=== PATIENT | female | born 2000 | race Caucasian/White ===

== ENCOUNTER → 2019-06-21 | Outpatient (CLI) | payer MEDICAID ==
[~2019-06-21] MED LIST: AMBIEN 5 MG TABL5 M1 PO
--- NOTE | 2019-06-21 16:55 | 2DMMODE ---
[place] [address] 2 D/M-MODE ECHOCARDIOGRAM Name: LALO MAGAÑA Room: [facility]#: [id number] Admission: 06/21/19 Attend Phys: Ced Abdi, Discharge: Date of : 89 Date of Service: 06/21/19 1655 Report #: [id number] THIS REPORT FOR: //name// APPROVED REPORT Study performed: 06/21/2019 09:23:13 EXAM: Comprehensive 2D, Doppler, and color-flow Echocardiogram Patient Location: Out-Patient BSA: 2.13 HR: 73 bpm BP: 122/72 mmHg Other Information Study Quality: Good Indications Aortic Valve Disease 2D Dimensions IVSd: 11.35 (7-11mm) LVOT Diam: 21.25 (18-24mm) LVDd: 47.10 mm PWd: 10.15 (7-11mm) Ascending Ao: 32.33 (22-36mm) LVDs: 19.53 (25-40mm) Aortic Root: 26.05 mm Volumes Left Atrial Volume (Systole) LA ESV Index: 15.60 mL/m2 Aortic Valve AoV Peak Armin.: 3.76 m/s AO Peak Gr.: 56.68 mmHg LVOT Max P.38 mmHg AO Mean Gr.: 34.21 mmHg LVOT Mean P.30 mmHg LVOT Max V: 1.05 m/s AO V2 VTI: 87.25 cm LVOT Mean V: 0.70 m/s PETER (VTI): 1.06 cm2 LVOT V1 VTI: 26.19 cm AI Cidra: 2.58 m/s2 AI PHT: 440.51 ms Mitral Valve E/A Ratio: 1.63 MV Decel. Time: 153.32 ms MV E Max Armin.: 1.06 m/[place] [address] 2 D/M-MODE ECHOCARDIOGRAM Name: LALO MAGAÑA Room: [facility]#: [id number] Admission: 06/21/19 Attend Phys: Ced Abdi, Discharge: Date of : 89 Date of Service: 06/21/19 1655 Report #: [id number] MV PHT: 44.46 ms MVA (PHT): 4.95 cm2 TDI E/Lateral E': 6.24 E/Medial E': 8.15 Medial E' Armin.: 0.13 m/s Lateral E' Armin.: 0.17 m/s Pulmonary Valve PV Peak Armin.: 0.94 m/s PV Peak Gr.: 3.50 mmHg Tricuspid Valve RAP Estimate: 5.00 mmHg TR Peak Gr.: 24.44 mmHg RVSP: 29.44 mmHg PA Pressure: 29.44 mmHg Left Ventricle The left ventricle is normal size. There is normal LV segmental wall motion. There is normal left ventricular wall thickness. Left ventricular systolic function is normal. LVEF is >70%. The left ventricular diastolic function is normal. Right Ventricle The right ventricle is normal size. The right ventricular systolic function is normal. Atria The left atrium size is normal. The right atrium size is normal. Aortic Valve Aortic valve is bicuspid. Moderate aortic regurgitation. Moderate aortic stenosis. Mitral Valve The mitral valve is normal in structure. There is no mitral valve regurgitation noted. No evidence of mitral valve stenosis. Tricuspid Valve The tricuspid valve is normal in structure. Mild tricuspid regurgitation. Pulmonic Valve The pulmonary valve is normal in structure. Mild [place] [address] 2 D/M-MODE ECHOCARDIOGRAM Name: LALO MAGAÑA Room: [facility]#: [id number] Admission: 06/21/19 Attend Phys: Ced Abdi, Discharge: Date of : 89 Date of Service: 06/21/19 1655 Report #: [id number] Great Vessels The aortic root is normal in size. IVC is normal in size and collapses >50% with inspiration. Pericardium There is no pericardial effusion. <Conclusion> The left ventricle is normal size. There is normal left ventricular wall thickness. Left ventricular systolic function is normal. LVEF is >70%. The left ventricular diastolic function is normal. Aortic valve is bicuspid. Moderate aortic regurgitation. Moderate aortic stenosis. Mild tricuspid regurgitation. IVC is normal in size and collapses >50% with inspiration. The aortic root is normal in size. <ELECTRONICALLY SIGNED> By: Ced Abdi MD, FACC 06/21/19 1655 165 165 Ced Abdi MD, FACC /INF
== END ==
LOC: M.CRD 08:38
DX: I08.8 Other rheumatic multiple valve diseases (principal)

== ENCOUNTER 2020-08-20 23:03 | Emergency (ER) | payer MEDICAID ==
[~2020-08-20] VITALS: Ht 160 cm; Wt 120.2 kg
[2020-08-20] MEDS ORDERED: ABILIFY 5 MG TAB5 M1 PO (23:14)
[2020-08-20] MEDS ORDERED: PHENTERMINE (23:14)
[2020-08-20 23:38] LABS: URINE BILIRUBIN NEGATIVE (Negative); URINE BLOOD TRACE (Negative); URINE CLARITY SL CLOUDY; URINE COLOR YELLOW; URINE GLUCOSE-RANDOM NEGATIVE (Negative); URINE KETONES NEGATIVE (Negative); URINE LEUKOCYTES-REFLEX NEGATIVE (Negative); URINE NITRITE-REFLEX NEGATIVE (Negative); URINE PROTEIN NEGATIVE (Negative); URINE SPECIFIC GRAVITY 1.025 (1.005-1.030)
[2020-08-20 23:49] LABS: ABSOLUTE BASOPHILS 0.1 thou/uL (0.0-0.2); ABSOLUTE EOSINOPHILS 0.1 thou/uL (0.0-0.7); ABSOLUTE LYMPHOCYTES 3.5 thou/uL (0.8-5.3); ABSOLUTE MONOCYTES 0.7 thou/uL (0.0-1.2); ABSOLUTE NEUTROPHILS 5.8 thou/uL (1.6-8.1); BASOPHILS 0.6 %; EOSINOPHILS 0.6 %; HEMATOCRIT 37.2 % (37.0-47.0); HEMOGLOBIN 12.3 gm/dL (12.0-15.0); LYMPHOCYTES 34.7 %; MCH 28.9 pg (26.0-34.0); MCHC 33.1 g/dL (28.0-37.0); MCV 87.2 fL (80.0-100.0); MONOCYTES 6.4 %; MPV 8.3 fl. (7.2-11.1); NUCLEATED RBCS 0 /100WBC; PLATELET COUNT* 297 thou/uL (150-400); POLYS 57.7 %; RBC 4.26 mil/uL (4.20-5.00); RDW-CV 13.3 % (10.5-14.5); WBC 10.1 thou/uL (4.0-11.0)
[2020-08-20 23:53] LABS: CALCIUM 8.4 mg/dL (8.5-10.1)
[2020-08-20 23:57] LABS: ALBUMIN 3.5 g/dL (3.4-5.0); TOTAL BILIRUBIN 0.1 mg/dL (<0.1-1.0); TOTAL PROTEIN 7.9 g/dL (6.4-8.2)
[2020-08-21 00:22] VITALS: BP 125/80
== END 2020-08-21 00:22 | disposition home or self-care (01) ==
LOC: M.ERS 23:03
PROVIDERS: Personal Emergency Response Attendant
DX: R10.13 Epigastric pain (principal); R10.11 Right upper quadrant pain; Z79.899 Other long term (current) drug therapy

== ENCOUNTER → 2020-09-17 | Outpatient (CLI) | payer MEDICAID ==
[~2020-09-17] MED LIST changes: +ABILIFY 5 MG TAB5 M1 PO; +PHENTERMINE
--- NOTE | 2020-09-17 13:49 | 2DMMODE ---
[place] [address] 2 D/M-MODE ECHOCARDIOGRAM Name: ARCHANALALO A Room: [facility]#: [id number] Admission: 09/17/20 Attend Phys: Ced Abdi, Discharge: Date of : 89 Date of Service: 09/17/20 1348 Report #: [id number] THIS REPORT FOR: cc: Gadiel Arzate Ahmad W. DO Liston, Michael J. MD [facility] ~ APPROVED REPORT Study performed: 09/17/2020 10:57:58 EXAM: Comprehensive 2D, Doppler, and color-flow Echocardiogram Patient Location: Out-Patient BSA: 2.15 HR: 55 bpm Other Information Study Quality: Fair Indications Aortic Valve Disease 2D Dimensions IVSd: 8.42 (7-11mm) LVOT Diam: 20.36 (18-24mm) LVDd: 50.61 mm PWd: 9.79 (7-11mm) Ascending Ao: 32.58 (22-36mm) LVDs: 26.89 (25-40mm) Aortic Root: 27.91 mm Volumes Left Atrial Volume (Systole) LA ESV Index: 11.80 mL/m2 Aortic Valve AoV Peak Armin.: 3.89 m/s AO Peak Gr.: 60.68 mmHg LVOT Max P.54 mmHg AO Mean Gr.: 36.61 mmHg LVOT Mean P.85 mmHg LVOT Max V: 0.94 m/s AO V2 VTI: 89.56 cm LVOT Mean V: 0.63 m/s PETER (VTI): 0.93 cm2 LVOT V1 VTI: 25.51 cm AI Andrew: 2.16 m/s2 AI PHT: 550.34 [place] [address] 2 D/M-MODE ECHOCARDIOGRAM Name: LALO MAGAÑA Room: [facility]#: [id number] Admission: 09/17/20 Attend Phys: Ced Abdi, Discharge: Date of : 89 Date of Service: 09/17/20 1348 Report #: [id number] Mitral Valve E/A Ratio: 2.04 MV Decel. Time: 186.47 ms MV E Max Armin.: 0.90 m/s MV PHT: 54.08 ms MVA (PHT): 4.07 cm2 TDI E/Lateral E': 4.74 E/Medial E': 6.00 Medial E' Armin.: 0.15 m/s Lateral E' Armin.: 0.19 m/s Pulmonary Valve PV Peak Armin.: 0.84 m/s PV Peak Gr.: 2.82 mmHg Left Ventricle The left ventricle is normal size. There is normal LV segmental wall motion. There is normal left ventricular wall thickness. Left ventricular systolic function is normal. LVEF is 55-60%. The left ventricular diastolic function is normal. Right Ventricle The right ventricle is normal size. The right ventricular systolic function is normal. Atria The left atrium size is normal. The right atrium size is normal. Aortic Valve Aortic valve is bicuspid. Mild aortic regurgitation. Moderate to severe aortic stenosis. Mitral Valve The mitral valve is normal in structure. There is no mitral valve regurgitation noted. No evidence of mitral valve stenosis. Tricuspid Valve The tricuspid valve is normal in structure. There is no tricuspid valve regurgitation noted. Pulmonic Valve The pulmonary valve is normal in structure. There is no pulmonic valvular regurgitation[place] [address] 2 D/M-MODE ECHOCARDIOGRAM Name: LALO MAGAÑA Room: [facility]#: [id number] Admission: 09/17/20 Attend Phys: Ced Abdi, Discharge: Date of : 89 Date of Service: 09/17/20 1348 Report #: [id number] The aortic root is normal in size. IVC is normal in size and collapses >50% with inspiration. Pericardium There is no pericardial effusion. <Conclusion> The left ventricle is normal size. There is normal left ventricular wall thickness. Left ventricular systolic function is normal. LVEF is 55-60%. The left ventricular diastolic function is normal. Aortic valve is bicuspid. Mild aortic regurgitation. Moderate to severe aortic stenosis. IVC is normal in size and collapses >50% with inspiration. <ELECTRONICALLY SIGNED> By: Ced Abdi MD, FACC 09/17/20 1348 1348 1348 Ced Abdi MD, FACC /INF
== END ==
LOC: M.CRD 07-31 13:00
PROVIDERS: ATTEND Internal Medicine Cardiovascular Disease
DX: I35.1 Nonrheumatic aortic (valve) insufficiency (principal)

== ENCOUNTER 2020-10-19 19:10 | Emergency (ER) | payer MEDICAID ==
[~2020-10-19] VITALS: Ht 157.5 cm; Wt 98.9 kg
[2020-10-19 20:15] LABS: ABSOLUTE LYMPHOCYTES 2.9 thou/uL (0.8-5.3); ABSOLUTE MONOCYTES 0.6 thou/uL (0.0-1.2); EOSINOPHILS 0.4 %; LYMPHOCYTES 22.8 %; MONOCYTES 4.8 %; MPV 8.6 fl. (7.2-11.1); NUCLEATED RBCS 0 /100WBC
[2020-10-19 20:17] LABS: ABSOLUTE BASOPHILS 0.1 thou/uL (0.0-0.2); BASOPHILS 0.9 %; HEMATOCRIT 39.2 % (37.0-47.0); HEMOGLOBIN 12.9 gm/dL (12.0-15.0); MCH 28.5 pg (26.0-34.0); MCHC 32.8 g/dL (28.0-37.0); MCV 86.8 fL (80.0-100.0); PLATELET COUNT* 308 thou/uL (150-400); POLYS 71.1 %; RBC 4.51 mil/uL (4.20-5.00); RDW-CV 13.1 % (10.5-14.5); WBC 12.7 thou/uL (4.0-11.0)
[2020-10-19 20:19] LABS: URINE BILIRUBIN NEGATIVE (Negative); URINE BLOOD 2+ (Negative); URINE CLARITY CLEAR; URINE COLOR YELLOW; URINE GLUCOSE-RANDOM NEGATIVE (Negative); URINE KETONES NEGATIVE (Negative); URINE LEUKOCYTES-REFLEX NEGATIVE (Negative); URINE NITRITE-REFLEX NEGATIVE (Negative); URINE PROTEIN NEGATIVE (Negative); URINE SPECIFIC GRAVITY 1.025 (1.005-1.030)
[2020-10-19 20:25] LABS: PROTIME 10.7 Seconds (9.20-11.50)
[2020-10-19 20:29] LABS: ALBUMIN 3.6 g/dL (3.4-5.0); CALCIUM 8.9 mg/dL (8.5-10.1); POTASSIUM 4.3 mmol/L (3.5-5.1); TOTAL BILIRUBIN 0.1 mg/dL (<0.1-1.0); TOTAL PROTEIN 7.8 g/dL (6.4-8.2)
[2020-10-19 20:36] LABS: CASTS None Seen /LPF (None Seen); CRYSTALS None Seen /LPF (None Seen); MUCUS None Seen strn/LPF (None Seen); SQUAMOUS >10 Many /LPF (0-3); URINE RBC 3-10 Few /HPF (0-2)
[2020-10-19 20:37] LABS: BACTERIA-REFLEX 1-9 Few /HPF (None Seen); URINE WBC-REFLEX 0-5 Rare /HPF (0-5)
[2020-10-19 22:00] VITALS: BP 128/80
--- NOTE | 2020-10-20 12:41 | EKG ---
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[id number] Requested By: Bhumi Elliott Order Number: [id number] MD: Donavan Yoon Measurements Intervals [place] Rate: 79 P: 20 MI: 130 QRS: 13 QRSD: 86 T: -11 QT: 380 QTc: 436 Interpretive Statements Sinus rhythm LVH by voltage Nonspecific T abnormalities, inferior leads Baseline wander in lead(s) V6 No previous ECG available for comparison Electronically Signed On 10-20-2020 12:41:35 WOOD 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
== END 2020-10-19 22:00 | disposition home or self-care (01) ==
LOC: M.ERS 19:10
PROVIDERS: Personal Emergency Response Attendant
DX: K52.9 Noninfective gastroenteritis and colitis, unspecified (principal); F17.210 Nicotine dependence, cigarettes, uncomplicated

== ENCOUNTER 2020-10-21 22:59 | Emergency (ER) | payer MEDICAID ==
[~2020-10-21] VITALS: Ht 160 cm; Wt 118.4 kg
[2020-10-21] MEDS ORDERED: VENTOLIN HFA 1818 GM INH (23:06)
[2020-10-21 23:18] VITALS: BP 124/78
== END 2020-10-21 23:18 | disposition home or self-care (01) ==
LOC: M.ERS 22:59
DX: R06.00 Dyspnea, unspecified (principal); F17.210 Nicotine dependence, cigarettes, uncomplicated

== ENCOUNTER 2021-01-08 23:06 | Emergency (ER) | payer MEDICAID ==
[~2021-01-08] VITALS: Ht 157.5 cm; Wt 121.6 kg
[~2021-01-08 23:06] MED LIST changes: +VENTOLIN HFA 1818 GM INH
[2021-01-08 23:44] LABS: URINE BILIRUBIN NEGATIVE (Negative); URINE BLOOD 1+ (Negative); URINE COLOR YELLOW; URINE GLUCOSE-RANDOM NEGATIVE (Negative); URINE KETONES NEGATIVE (Negative); URINE LEUKOCYTES-REFLEX TRACE (Negative); URINE NITRITE-REFLEX NEGATIVE (Negative); URINE PROTEIN NEGATIVE (Negative); URINE SPECIFIC GRAVITY >= 1.030 (1.005-1.030)
[2021-01-08 23:44] LABS: ABSOLUTE BASOPHILS 0.1 thou/uL (0.0-0.2); ABSOLUTE LYMPHOCYTES 3.2 thou/uL (0.8-5.3); ABSOLUTE MONOCYTES 0.7 thou/uL (0.0-1.2); ABSOLUTE NEUTROPHILS 8.1 thou/uL (1.6-8.1); BASOPHILS 1.1 %; EOSINOPHILS 0.4 %; HEMATOCRIT 36.4 % (37.0-47.0); LYMPHOCYTES 26.7 %; MCHC 32.9 g/dL (28.0-37.0); MCV 85.1 fL (80.0-100.0); MONOCYTES 5.5 %; NUCLEATED RBCS 0 /100WBC; PLATELET COUNT* 310 thou/uL (150-400); POLYS 66.3 %; RBC 4.28 mil/uL (4.20-5.00); RDW-CV 12.6 % (10.5-14.5); WBC 12.1 thou/uL (4.0-11.0)
[2021-01-08 23:45] LABS: URINE CLARITY SL HAZY
[2021-01-08 23:47] LABS: CALCIUM 9.1 mg/dL (8.5-10.1); POTASSIUM 3.7 mmol/L (3.5-5.1)
[2021-01-08 23:53] LABS: ALBUMIN 3.4 g/dL (3.4-5.0); TOTAL BILIRUBIN 0.2 mg/dL (<0.1-1.0); TOTAL PROTEIN 7.8 g/dL (6.4-8.2)
[2021-01-08 23:54] LABS: AMP/METHAMP Negative (Negative); BARBITURATES Negative (Negative); BENZODIAZEPINES Negative (Negative); COCAINE Negative (Negative); METHADONE Negative (Negative); OPIATES Negative (Negative); PCP Negative (Negative); THC Negative (Negative)
[2021-01-08 23:58] LABS: BACTERIA-REFLEX >30 Many /HPF (None Seen); CASTS None Seen /LPF (None Seen); CRYSTALS None Seen /LPF (None Seen); MUCUS 0-3 Light strn/LPF (None Seen); SQUAMOUS 4-10 Moderate /LPF (0-3); URINE WBC-REFLEX 6-15 Few /HPF (0-5); WBC CLUMPS Few (None Seen)
[2021-01-09] MEDS ORDERED: BACTRIM DS TAB1 EACH PO (01:18)
[2021-01-09] MEDS ORDERED: ZOFRAN ODT4 MG PO (01:18)
[2021-01-09 01:30] VITALS: BP 102/73
== END 2021-01-09 02:07 | disposition home or self-care (01) ==
LOC: M.ERS 23:06
PROVIDERS: Emergency Medicine
DX: N39.0 Urinary tract infection, site not specified (principal); R10.11 Right upper quadrant pain; R10.13 Epigastric pain; F17.210 Nicotine dependence, cigarettes, uncomplicated; Z79.899 Other long term (current) drug therapy

== ENCOUNTER 2021-01-14 19:26 | Emergency (ER) | payer MEDICAID ==
[~2021-01-14] VITALS: Ht 157.5 cm; Wt 122.0 kg
[~2021-01-14 19:26] MED LIST changes: +BACTRIM DS TAB1 EACH PO; +ZOFRAN ODT4 MG PO
[2021-01-14 20:02] VITALS: BP 108/75
[2021-01-14] MEDS ORDERED: OXTELLAR XR150 MG PO (20:05)
== END 2021-01-14 21:45 | disposition left against medical advice (07) ==
LOC: M.ERS 19:26
DX: Z53.21 Procedure and treatment not carried out due to patient leaving prior to being seen by health care provider (principal)

== ENCOUNTER 2021-03-06 20:38 | Emergency (ER) | payer MEDICAID ==
[~2021-03-06] VITALS: Ht 160 cm; Wt 117.9 kg
[~2021-03-06 20:38] MED LIST changes: +OXTELLAR XR150 MG PO
[2021-03-06 21:00] LABS: URINE BILIRUBIN NEGATIVE (Negative); URINE BLOOD NEGATIVE (Negative); URINE COLOR YELLOW; URINE GLUCOSE-RANDOM NEGATIVE (Negative); URINE KETONES NEGATIVE (Negative); URINE NITRITE-REFLEX NEGATIVE (Negative); URINE PROTEIN NEGATIVE (Negative); URINE SPECIFIC GRAVITY 1.015 (1.005-1.030)
[2021-03-06 21:02] LABS: URINE CLARITY CLOUDY; URINE LEUKOCYTES-REFLEX 2+ (Negative)
[2021-03-06 21:06] LABS: SQUAMOUS >10 Many /LPF (0-3); URINE WBC-REFLEX 0-5 Rare /HPF (0-5)
[2021-03-06 21:07] LABS: BACTERIA-REFLEX >30 Many /HPF (None Seen); CASTS None Seen /LPF (None Seen); CRYSTALS None Seen /LPF (None Seen); URINE RBC None Seen /HPF (0-2)
[2021-03-06] MEDS ORDERED: MACROBID 100 M100 M1 PO (21:46)
[2021-03-06] MEDS ORDERED: ZOFRAN ODT4 MG PO (21:46)
[2021-03-06 21:56] VITALS: BP 100/70
== END 2021-03-06 21:59 | disposition home or self-care (01) ==
LOC: M.ERS 20:38
PROVIDERS: Emergency Medicine
DX: N39.0 Urinary tract infection, site not specified (principal); R11.0 Nausea; F17.210 Nicotine dependence, cigarettes, uncomplicated

== ENCOUNTER 2021-03-09 11:11 | Emergency (ER) | payer MEDICAID ==
[~2021-03-09] VITALS: Ht 157.5 cm; Wt 118.5 kg
[~2021-03-09 11:11] MED LIST changes: +MACROBID 100 M100 M1 PO
[2021-03-09 11:46] LABS: ABSOLUTE BASOPHILS 0.1 thou/uL (0.0-0.2); ABSOLUTE LYMPHOCYTES 2.3 thou/uL (0.8-5.3); ABSOLUTE MONOCYTES 0.5 thou/uL (0.0-1.2); ABSOLUTE NEUTROPHILS 7.7 thou/uL (1.6-8.1); BASOPHILS 0.6 %; EOSINOPHILS 0.5 %; HEMOGLOBIN 12.3 gm/dL (12.0-15.0); LYMPHOCYTES 21.6 %; MCHC 34.3 g/dL (28.0-37.0); MCV 84.7 fL (80.0-100.0); MPV 9.4 fl. (7.2-11.1); NUCLEATED RBCS 0 /100WBC; PLATELET COUNT* 254 thou/uL (150-400); POLYS 72.3 %; RBC 4.25 mil/uL (4.20-5.00); WBC 10.6 thou/uL (4.0-11.0)
[2021-03-09 11:56] LABS: CALCIUM 8.8 mg/dL (8.5-10.1); CREATININE 0.9 mg/dL (0.6-1.3); POTASSIUM 4.3 mmol/L (3.5-5.1)
--- NOTE | 2021-03-09 12:15 | EKG ---
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: OSMAN JOHNSON : 2000 Requested By: Eriberto Tinajero Order Number: [id number] MD: Donavan Yoon Measurements Intervals [place] Rate: 62 P: 13 RI: 132 QRS: 11 QRSD: 101 T: -16 QT: 437 QTc: 444 Interpretive Statements Sinus rhythm Probable left ventricular hypertrophy Nonspecific T abnormalities, inferior leads Compared to ECG 10/19/2020 19:07:30 No significant changes Electronically Signed On 03-09-2021 12:15:20 CDT by Donavan Yoon [email or web address] <ELECTRONICALLY SIGNED> By: Avril Yoon MD, [facility] 03/09/21 1215 1126 1126 Avril Yoon MD, [facility] /EPI
[2021-03-09] MEDS ORDERED: FLEXERIL PO (13:13)
[2021-03-09 13:20] VITALS: BP 114/61
== END 2021-03-09 13:20 | disposition home or self-care (01) ==
LOC: M.ERS 11:11
PROVIDERS: Emergency Medicine Emergency Medical Services
DX: R07.81 Pleurodynia (principal); F17.210 Nicotine dependence, cigarettes, uncomplicated

== ENCOUNTER 2021-04-06 19:39 | Emergency (ER) | payer MEDICAID ==
[~2021-04-06] VITALS: Ht 160 cm; Wt 113.4 kg
[~2021-04-06 19:39] MED LIST changes: +FLEXERIL PO
[2021-04-06] MEDS ORDERED: RELAFEN750 M1 PO (22:28)
[2021-04-06] MEDS ORDERED: ZANAFLEX4 MG PO (22:29)
[2021-04-06 23:33] VITALS: BP 125/68
== END 2021-04-06 23:33 | disposition home or self-care (01) ==
LOC: M.ERS 19:39
DX: G89.29 Other chronic pain (principal); M25.561 Pain in right knee; F17.210 Nicotine dependence, cigarettes, uncomplicated

== ENCOUNTER 2021-04-07 14:46 | Emergency (ER) | payer MEDICAID ==
[~2021-04-07] VITALS: Ht 160 cm; Wt 115.7 kg
[~2021-04-07 14:46] MED LIST changes: +RELAFEN750 M1 PO; +ZANAFLEX4 MG PO
[2021-04-07 16:03] VITALS: BP 102/68
== END 2021-04-07 16:04 | disposition home or self-care (01) ==
LOC: M.ERS 14:46
DX: S93.492A Sprain of other ligament of left ankle, initial encounter (principal); F17.210 Nicotine dependence, cigarettes, uncomplicated; W18.39XA Other fall on same level, initial encounter; Y93.89 Activity, other specified; Y92.89 Other specified places as the place of occurrence of the external cause; Y99.8 Other external cause status

== ENCOUNTER 2021-05-17 13:04 | Emergency (ER) | payer MEDICAID ==
[~2021-05-17] VITALS: Ht 160 cm; Wt 115.7 kg
[2021-05-17] MEDS ORDERED: VISTARIL 25 MG25 M1 PO (13:18)
[2021-05-17 13:27] VITALS: BP 118/60
== END 2021-05-17 13:31 | disposition home or self-care (01) ==
LOC: M.ERS 13:04
DX: F41.9 Anxiety disorder, unspecified (principal); F32.9 Major depressive disorder, single episode, unspecified; F90.9 Attention-deficit hyperactivity disorder, unspecified type; F20.9 Schizophrenia, unspecified; F17.210 Nicotine dependence, cigarettes, uncomplicated

== ENCOUNTER 2021-06-10 19:39 | Emergency (ER) | payer MEDICAID ==
[~2021-06-10] VITALS: Ht 157.5 cm; Wt 115.2 kg
[~2021-06-10 19:39] MED LIST changes: +VISTARIL 25 MG25 M1 PO
[2021-06-10] MEDS ORDERED: PREDNISONE 20 M20 MG PO (20:08)
[2021-06-10 20:20] VITALS: BP 120/80
== END 2021-06-10 20:21 | disposition home or self-care (01) ==
LOC: M.ERS 19:39
DX: L25.9 Unspecified contact dermatitis, unspecified cause (principal); F31.9 Bipolar disorder, unspecified; F41.9 Anxiety disorder, unspecified; F20.9 Schizophrenia, unspecified; F17.210 Nicotine dependence, cigarettes, uncomplicated; Z79.891 Long term (current) use of opiate analgesic; Z79.899 Other long term (current) drug therapy

== ENCOUNTER 2021-06-25 13:37 | Emergency (ER) | payer MEDICAID ==
[~2021-06-25] VITALS: Ht 167.6 cm; Wt 115.8 kg
[~2021-06-25 13:37] MED LIST changes: +PREDNISONE 20 M20 MG PO
[2021-06-25] MEDS ORDERED: ABILIFY20 MG PO (13:53)
[2021-06-25 14:40] LABS: URINE BILIRUBIN NEGATIVE (Negative); URINE BLOOD 3+ (Negative); URINE CLARITY CLOUDY; URINE COLOR YELLOW; URINE GLUCOSE-RANDOM NEGATIVE (Negative); URINE KETONES NEGATIVE (Negative); URINE LEUKOCYTES-REFLEX 1+ (Negative); URINE NITRITE-REFLEX NEGATIVE (Negative); URINE PROTEIN TRACE (Negative); URINE SPECIFIC GRAVITY 1.025 (1.005-1.030); URINE UROBILINOGEN 0.2 E.U./dl (0.2-1.0)
[2021-06-25 14:43] LABS: BACTERIA-REFLEX 1-9 Few /HPF (None Seen); CASTS None Seen /LPF (None Seen); MUCUS 4-6 Moderate strn/LPF (None Seen); SQUAMOUS >10 Many /LPF (0-3); URINE RBC 3-10 Few /HPF (0-2); URINE WBC-REFLEX 6-15 Few /HPF (0-5)
[2021-06-25 14:44] LABS: CRYSTALS None Seen /LPF (None Seen)
[2021-06-25 14:48] LABS: ABSOLUTE BASOPHILS 0.1 thou/uL (0.0-0.2); ABSOLUTE EOSINOPHILS 0.1 thou/uL (0.0-0.7); ABSOLUTE LYMPHOCYTES 2.8 thou/uL (0.8-5.3); ABSOLUTE MONOCYTES 0.5 thou/uL (0.0-1.2); ABSOLUTE NEUTROPHILS 8.6 thou/uL (1.6-8.1); BASOPHILS 0.5 %; EOSINOPHILS 0.5 %; HEMATOCRIT 37.8 % (37.0-47.0); HEMOGLOBIN 12.4 gm/dL (12.0-15.0); LYMPHOCYTES 23.2 %; MCH 27.9 pg (26.0-34.0); MCHC 32.9 g/dL (28.0-37.0); MCV 84.8 fL (80.0-100.0); MONOCYTES 4.3 %; MPV 8.5 fl. (7.2-11.1); NUCLEATED RBCS 0 /100WBC; PLATELET COUNT* 342 thou/uL (150-400); POLYS 71.5 %; RBC 4.46 mil/uL (4.20-5.00); RDW-CV 13.8 % (10.5-14.5)
[2021-06-25 14:54] LABS: POTASSIUM 4.1 mmol/L (3.5-5.1)
[2021-06-25 14:58] LABS: ALBUMIN 3.5 g/dL (3.4-5.0); TOTAL BILIRUBIN 0.3 mg/dL (<0.1-1.0); TOTAL PROTEIN 7.9 g/dL (6.4-8.2)
[2021-06-25] MEDS ORDERED: MACROBID 100 M100 MG PO (16:28)
[2021-06-25 16:58] VITALS: BP 122/62
== END 2021-06-25 16:59 | disposition home or self-care (01) ==
LOC: M.ERS 13:37
PROVIDERS: Physician Assistant
DX: N39.0 Urinary tract infection, site not specified (principal); F31.9 Bipolar disorder, unspecified; F41.9 Anxiety disorder, unspecified; F90.9 Attention-deficit hyperactivity disorder, unspecified type; F23 Brief psychotic disorder; F17.210 Nicotine dependence, cigarettes, uncomplicated; Z79.899 Other long term (current) drug therapy

== ENCOUNTER 2021-07-04 22:58 | Emergency (ER) | payer MEDICAID ==
[~2021-07-04] VITALS: Ht 167.6 cm; Wt 102.1 kg
[~2021-07-04 22:58] MED LIST changes: +ABILIFY20 MG PO; +MACROBID 100 M100 MG PO
[2021-07-05 00:06] LABS: URINE BILIRUBIN NEGATIVE (Negative); URINE BLOOD TRACE (Negative); URINE CLARITY CLEAR; URINE COLOR YELLOW; URINE GLUCOSE-RANDOM NEGATIVE (Negative); URINE KETONES NEGATIVE (Negative); URINE NITRITE-REFLEX NEGATIVE (Negative); URINE PROTEIN NEGATIVE (Negative); URINE SPECIFIC GRAVITY 1.025 (1.005-1.030); URINE UROBILINOGEN 0.2 E.U./dl (0.2-1.0)
[2021-07-05 00:09] LABS: AMP/METHAMP Negative (Negative); BARBITURATES Negative (Negative); BENZODIAZEPINES Negative (Negative); COCAINE Negative (Negative); METHADONE Negative (Negative); OPIATES Negative (Negative); PCP Negative (Negative); THC Negative (Negative)
[2021-07-05 00:11] LABS: URINE LEUKOCYTES-REFLEX 2+ (Negative)
[2021-07-05 00:38] LABS: CASTS None Seen /LPF (None Seen); SQUAMOUS >10 Many /LPF (0-3)
[2021-07-05 00:40] LABS: AMORPHOUS URATES Moderate /LPF (None Seen); BACTERIA-REFLEX >30 Many /HPF (None Seen); URINE RBC 0-2 Rare /HPF (0-2); URINE WBC-REFLEX 6-15 Few /HPF (0-5)
[2021-07-05] MEDS ORDERED: IBUPROFEN 800800 MG PO (00:53)
[2021-07-05 01:21] VITALS: BP 98/48
== END 2021-07-05 01:21 | disposition home or self-care (01) ==
LOC: M.ERS 22:58
PROVIDERS: Personal Emergency Response Attendant
DX: N39.0 Urinary tract infection, site not specified (principal); R10.9 Unspecified abdominal pain; F31.9 Bipolar disorder, unspecified; F41.9 Anxiety disorder, unspecified; F20.9 Schizophrenia, unspecified; F17.210 Nicotine dependence, cigarettes, uncomplicated; Z79.891 Long term (current) use of opiate analgesic; Z79.899 Other long term (current) drug therapy